=== PATIENT | female | born 1965 | race Caucasian/White ===

== ENCOUNTER 2018-04-23 13:01 | Emergency (ER) | payer OTHER ==
[~2018-04-23] VITALS: Ht 170.2 cm; Wt 87.5 kg
[~2018-04-23 13:01] MED LIST: ANTIDEPRESSANT MED; SULF-261 PO
[2018-04-23 13:28] VITALS: BP_SYST 146
[2018-04-23] MEDS ORDERED: KETOROLAC TROMETHAMINE 30 MG VIAL IVP ONE (13:45)
[2018-04-23 14:14] LABS: BASOPHILS # (AUTO) 0.1 K/uL (0.0-0.2); BASOPHILS % (AUTO) 0.8 % (0.0-2.0); EOSINOPHILS # (AUTO) 0.2 K/uL (0.0-0.4); EOSINOPHILS % (AUTO) 2.8 % (0.0-4.0); HEMATOCRIT 43.6 % (36-48); HEMOGLOBIN 14.7 g/dL (12.0-16.0); LYMPHOCYTES % (AUTO) 35.4 % (20.5-51.5); MEAN CORPUSCULAR HEMOGLOBIN 31 pg (27-31); MEAN CORPUSCULAR HGB CONC 34 % (32-36); MEAN CORPUSCULAR VOLUME 93 fL (79.0-98.0); MONOCYTES # (AUTO) 0.6 K/uL (0.0-1.0); MONOCYTES % (AUTO) 6.5 % (1.7-9.3); NEUTROPHILS # (AUTO) 4.6 K/uL (1.8-7.7); NEUTROPHILS % (AUTO) 54.5 % (40.0-70.0); PLATELET COUNT (AUTO) 317 K/uL (130-430); RED BLOOD CELL COUNT(AUTO) 4.71 MIL/uL (4.2-6.2); RED CELL DISTRIBUTION WIDTH 12.8 % (9.0-15.0); WHITE BLOOD COUNT (AUTO) 8.5 K/uL (4.8-10.8)
[2018-04-23 14:35] LABS: CALCIUM 9.5 mg/dL (8.4-11.0); CREATININE 0.77 mg/dL (0.55-1.30); POTASSIUM 4.1 mmol/L (3.5-5.1)
[2018-04-23 14:39] LABS: ALBUMIN 4.2 g/dL (3.4-4.8); TOTAL BILIRUBIN 0.3 mg/dL (0.0-1.0)
[2018-04-23 14:47] LABS: BILIRUBIN,URINE NEGATIVE (NEGATIVE); BLOOD, URINE NEGATIVE (NEGATIVE); CLARITY/URINE HAZY (CLEAR); COLOR,URINE YELLOW (YELLOW); GLUCOSE,URINE NEGATIVE (NEGATIVE); KETONES,URINE NEGATIVE (NEGATIVE); LEUKOCYTE ESTERASE ,URINE NEGATIVE (NEGATIVE); NITRITE, URINE NEGATIVE (NEGATIVE); PH,URINE 5.5 (5.0-8.0); PROTEIN URINE NEGATIVE (NEGATIVE); UROBILINOGEN,URINE 0.2 (0.2-1.0)
[2018-04-23] MEDS ORDERED: DIPH-TET-PERTUS Vaccine 0.5 ML VIAL (ADACEL) I.M. ONE (15:15)
[2018-04-23 15:37] VITALS: BP_SYST 146
== END 2018-04-23 15:35 | disposition home or self-care (01) ==
LOC: SED 13:01
DX: S42.295A Other nondisplaced fracture of upper end of left humerus, initial encounter for closed fracture (principal); S09.90XA Unspecified injury of head, initial encounter; R03.0 Elevated blood-pressure reading, without diagnosis of hypertension; W18.00XA Striking against unspecified object with subsequent fall, initial encounter; Y93.89 Activity, other specified; Y92.89 Other specified places as the place of occurrence of the external cause; Y99.8 Other external cause status
CPT/HCPCS: 29105; 36415; 70450; 71046; 73000; 73030; 73060; 80053; 81003; 83690; 85025; 90471; 90715; 96374; 99285; J1885

== ENCOUNTER 2021-01-27 09:15 | Emergency (ER) | payer OTHER ==
[~2021-01-27] VITALS: Ht 170.2 cm; Wt 90.7 kg
[2021-01-27 09:30] VITALS: BP_SYST 139
[2021-01-27] MEDS ORDERED: IBUPROFEN 800 MG TABLET PO ONE (10:30)
[2021-01-27] MEDS ORDERED: IBUP-1970 PO (11:10)
[2021-01-27 11:50] VITALS: BP_SYST 139
== END 2021-01-27 11:50 | disposition home or self-care (01) ==
LOC: SED 09:15
DX: M54.5 Low back pain (principal); E78.5 Hyperlipidemia, unspecified
CPT/HCPCS: 72100-TC; 99283

== ENCOUNTER 2022-03-11 06:02 | Emergency (ER) | payer OTHER ==
[~2022-03-11] VITALS: Ht 170.2 cm; Wt 86.2 kg
[~2022-03-11 06:02] MED LIST changes: +IBUP-1970 PO
[2022-03-11 07:00] VITALS: BP_SYST 154
--- NOTE | 2022-03-11 07:00 | NUR ---
BROUGHT BACK TO BED #7 AND TRIAGED. REPORT GIVEN TO ARLET
--- NOTE | 2022-03-11 07:20 | NUR ---
PT PRESENTS TO ER FROM HOME ALONE. CC DIZZINESS PT C/O N/V. AAOX4. SKIN INTACT, PT IN HOB SEMI FOWLERS FOR VERTIGO RELIEF. NO PMH. HX SMOKER. VSS.
[2022-03-11 07:26] LABS: BASOPHILS # (AUTO) 0.1 K/uL (0.0-0.2); BASOPHILS % (AUTO) 1.2 % (0.0-2.0); EOSINOPHILS # (AUTO) 0.1 K/uL (0.0-0.4); EOSINOPHILS % (AUTO) 0.9 % (0.0-4.0); HEMATOCRIT 43.2 % (36-48); HEMOGLOBIN 15.1 g/dL (12.0-16.0); LYMPHOCYTES % (AUTO) 20.3 % (20.5-51.5); MEAN CORPUSCULAR HEMOGLOBIN 31 pg (27-31); MEAN CORPUSCULAR HGB CONC 35 % (32-36); MEAN CORPUSCULAR VOLUME 90 fL (79.0-98.0); MONOCYTES # (AUTO) 0.5 K/uL (0.0-1.0); MONOCYTES % (AUTO) 4.7 % (1.7-9.3); NEUTROPHILS # (AUTO) 7.1 K/uL (1.8-7.7); NEUTROPHILS % (AUTO) 72.9 % (40.0-70.0); PLATELET COUNT (AUTO) 268 K/uL (130-430); RED BLOOD CELL COUNT(AUTO) 4.79 MIL/uL (4.2-6.2); RED CELL DISTRIBUTION WIDTH 13.5 % (9.0-15.0); WHITE BLOOD COUNT (AUTO) 9.7 K/uL (4.8-10.8)
--- NOTE | 2022-03-11 07:30 | NUR ---
ER at bedside examining patient.
[2022-03-11 07:40] LABS: ANION GAP 9 (5-15); CALCIUM 8.7 mg/dL (8.4-11.0); CHLORIDE 104 mmol/L (98-107); CREATININE 0.76 mg/dL (0.55-1.30); GLUCOSE 105 mg/dL (70-99); SODIUM SERUM 138 mmol/L (136-145); UREA NITROGEN, BLOOD 19 mg/dL (8-21)
[2022-03-11 07:41] LABS: GFR AFRICAN AMERICAN 102 mL/min (>90)
--- NOTE | 2022-03-11 07:45 | NUR ---
# 20 gauge angiocath placed to RIGHT AC. Use of asceptic technique. Opsite placed over site. Blood return noted. Flushed with 10 cc of normal saline. No evidence of infiltration noted. Patient tolerated well.
[2022-03-11 07:48] LABS: ALANINE AMINOTRANSFERASE 53 U/L (12-78); ALBUMIN 3.8 g/dL (3.4-4.8); ASPARTATE AMINOTRANSFERASE 34 U/L (10-37); TOTAL BILIRUBIN 0.3 mg/dL (0.0-1.0)
--- NOTE | 2022-03-11 07:52 | NUR ---
EKG performed at BS by PAKO ANDERSON. Physician given copy of EKG for review.
[2022-03-11] MEDS: METOCLOPRAMIDE HCL 10 MG/2 ML VIAL IVP ONE (08:02)
[2022-03-11] MEDS: MECLIZINE HCL 25 MG TABLET (ANITVERT) PO ONE (08:02)
[2022-03-11] MEDS ORDERED: MECL-261 PO (08:35)
--- NOTE | 2022-03-11 08:54 | NUR ---
Patient given written and verbal discharge instructions and verbalizes understanding. ER MD discussed with patient the results and treatment provided. Patient in stable condition. ID arm band removed. IV catheter removed intact and dressing applied, no active bleeding. Rx of MECLIZINE given. Patient educated on ANTIVERTIGO and to follow up with PMD. Opportunity for questions provided and answered. Medication side effect fact sheet provided.
[2022-03-11 10:06] VITALS: BP_SYST 134
== END 2022-03-11 08:54 | disposition home or self-care (01) ==
LOC: SED 06:02
DX: R42 Dizziness and giddiness (principal)
CPT/HCPCS: 36415; 70450; 71045; 76376; 80053; 81025; 84484; 85025; 93005; 96374; 99285; J2765; J8597

== ENCOUNTER 2023-05-04 20:19 | Emergency (ER) | payer OTHER ==
[~2023-05-04] VITALS: Ht 170.2 cm; Wt 93.4 kg
[~2023-05-04 20:19] MED LIST changes: +MECL-261 PO
[2023-05-04 21:27] VITALS: BP_SYST 122; PULSE 110; RESP 17; TEMP 99; O2SAT 98
--- NOTE | 2023-05-04 21:34 | NUR ---
Patient triaged and placed in waiting room. VSS and patient appears in no acute distress at this time. Accompanied by , awaiting available bed, and MD notified of need for MSE.
--- NOTE | 2023-05-04 22:18 | NUR ---
Patient ambulated to H4.
[2023-05-04 22:27] LABS: BILIRUBIN,URINE NEGATIVE (NEGATIVE); BLOOD, URINE NEGATIVE (NEGATIVE); CLARITY/URINE CLEAR (CLEAR); COLOR,URINE YELLOW (YELLOW); GLUCOSE,URINE NEGATIVE (NEGATIVE); KETONES,URINE NEGATIVE (NEGATIVE); LEUKOCYTE ESTERASE ,URINE NEGATIVE (NEGATIVE); NITRITE, URINE NEGATIVE (NEGATIVE); PROTEIN URINE 2+ (NEGATIVE); UROBILINOGEN,URINE 0.2 (0.2-1.0)
[2023-05-04 22:43] LABS: BACTERIA,URINE FEW /HPF (None Seen); MUCUS,URINE 1+ /LPF (None Seen); RBC,URINE 0-3 /HPF (0-3)
--- NOTE | 2023-05-04 23:33 | NUR ---
Dr. Stanford at bedside for evaluation.
[2023-05-04] MEDS ORDERED: NACL 0.9% 1,000 ML IV ONE (23:45)
[2023-05-04] MEDS ORDERED: ONDANSETRON HCL 4 MG/2 ML VIAL IVP ONE (23:45)
--- NOTE | 2023-05-05 | NUR ---
No change from previous assessment.
--- NOTE | 2023-05-05 | NUR ---
SL 20 gauge placed to RAC. IVF 1000 ml bolus given, followed with Zofran 4 mg IVP and Rocephine 2 Gm IVPB.
[2023-05-05] MEDS ORDERED: cefTRIAXone 2 GM VIAL ONE (00:06)
[2023-05-05 00:34] LABS: BASOPHILS # (AUTO) 0.1 K/uL (0.0-0.2); BASOPHILS % (AUTO) 0.9 % (0.0-2.0); EOSINOPHILS # (AUTO) 0.2 K/uL (0.0-0.4); HEMATOCRIT 39.6 % (36-48); HEMOGLOBIN 13.4 g/dL (12.0-16.0); LYMPHOCYTES # (AUTO) 0.8 K/uL (1.0-5.5); LYMPHOCYTES % (AUTO) 6.9 % (20.5-51.5); MEAN CORPUSCULAR HEMOGLOBIN 31 pg (27-31); MEAN CORPUSCULAR HGB CONC 34 % (32-36); MEAN CORPUSCULAR VOLUME 92 fL (79.0-98.0); MONOCYTES # (AUTO) 0.8 K/uL (0.0-1.0); MONOCYTES % (AUTO) 6.5 % (1.7-9.3); NEUTROPHILS # (AUTO) 10.2 K/uL (1.8-7.7); NEUTROPHILS % (AUTO) 83.7 % (40.0-70.0); PLATELET COUNT (AUTO) 225 K/uL (130-430); RED CELL DISTRIBUTION WIDTH 13.3 % (9.0-15.0); WHITE BLOOD COUNT (AUTO) 12.2 K/uL (4.8-10.8)
[2023-05-05 00:48] LABS: CALCIUM 8.1 mg/dL (8.4-11.0); CREATININE 1.09 mg/dL (0.55-1.30)
[2023-05-05 00:52] LABS: ALBUMIN 3.3 g/dL (3.4-4.8); TOTAL BILIRUBIN 0.5 mg/dL (0.0-1.0)
[2023-05-05] MEDS ORDERED: CEPH250C PO (00:58)
[2023-05-05] MEDS ORDERED: ONDA-8 TL (00:58)
--- NOTE | 2023-05-05 00:58 | NUR ---
Dr. Stanford at bedside discussing labs, diagnostics and Tx plan. MD will discharge patient home.
--- NOTE | 2023-05-05 01:00 | NUR ---
SL discontinued with Catheter intact.
[2023-05-05 01:05] VITALS: BP_SYST 113; PULSE 73; RESP 16; TEMP 98.6; O2SAT 98
--- NOTE | 2023-05-05 01:05 | NUR ---
DCI, Rx and Work Excuse X 1 day given to patient. Patient acknowledges & understand DCI, Rx and work excuse. Patient ambulated OTD in stable condition.
== END 2023-05-05 01:05 | disposition home or self-care (01) ==
LOC: SED 20:19
DX: N10 Acute pyelonephritis (principal); T36.8X5A Adverse effect of other systemic antibiotics, initial encounter; R53.1 Weakness; R53.81 Other malaise; M54.50 Low back pain, unspecified; Z79.899 Other long term (current) drug therapy; Y92.89 Other specified places as the place of occurrence of the external cause
CPT/HCPCS: 99284; 80053; 81000; 85025; 36415; 96365; 96375; J7030; J0696; J2405